=== PATIENT | male | born 1945 | race Caucasian/White ===

== ENCOUNTER 2025-02-17 08:30 | Inpatient (IN) ==
--- NOTE | 2025-02-17 08:40 | ED Physician Documentation ---
PD HPI ABD PAIN Stated complaint Stated Complaint: ABD PX Chief complaint Chief Complaint: Abd Pain History obtained from History obtained from: Patient History of Present Illness Timing - onset: How many days ago (2) Timing - duration: Days (2) Timing - details: Gradual onset, Still present and Waxing and waning Quality: Cramping, Aching, Fullness/distended and Pain Location: All over / everywhere Radiation: Lower back; No Chest Improved by: Eating Worsened by: Moving; No Breathing Associated symptoms: Nausea and Constipation (Has not had a bowel movement for the last 3 days. Typically is regular.); No Fever, Vomiting or Diarrhea Similar symptoms before: Diagnosis (He has had an episode of GI bleeding in the past that led to a partial colectomy and then had a ventral hernia with repair. Subsequently has an umbilical hernia.) Meds/Allgy Home Medications Ambulatory Orders Medication Instructions Recorded Confirmed atenolol 25 mg tablet 25 mg PO BID 11/03/15 02/17/25 multivitamin (Daily Multiple 1 ea PO DAILY 11/03/15 02/17/25 tablet) valsartan 320 1 tab PO DAILY 11/03/15 02/17/25 mg-hydrochlorothiazide 25 mg tablet verapamil 180 mg tablet,extended 360 mg PO DAILY 11/03/15 02/17/25 release Allergies Allergies Allergy/AdvReac Type Severity Reaction Status Date / Time No Known Drug Allergies Allergy Verified 02/17/25 08:42 PFSH Active Problems All Active Problems Abdominal pain (Acute) Cecal volvulus (Acute) Medical History Medical History Hx of gastrointestinal hemorrhage Hernia Partial bowel obstruction History of hypertension Surgical History Surgical History Hx of knee surgery Hx of cataract surgery Hx of hernia repair History of partial colectomy Social History Social History Smoking Status: Never smoker Do you dip or chew tobacco?: No Do you vape?: No Living arrangement: At home Marital Status: Living Condition: With spouse/s.o. Relationship: Level: Independent Do you feel safe in your home environment?: Yes Suffered physical, verbal, emotional, or financial abuse?: No History of Abuse: No ETOH Use: Wine Frequency: Daily Number of Amount/day: 3 Substance Use: denies use Exam Constitutional normal general appearance, distress noted (mild) (The patient does not look too uncomfortable. His abdomen is distended with hyperactive bowel sounds.) and average body habitus Respiratory breath sounds equal bilaterally and normal respiratory effort Cardiovascular normal heart rate noted, regular rhythm noted and no edema Gastrointestinal distended (notably distended), abnormal bowel sounds noted (hyperactive bowel sounds) and no masses Periumbilical hernia without any tenderness and is partly reducible. Genitourinary no CVA tenderness Psychiatry mental status grossly normal, oriented x3 and thought process normal Skin skin color normal Results Vitals Vitals: Vital Signs - 24 hr 02/17/25 08:43 02/17/25 09:12 02/17/25 10:30 Temperature 36.7 C Temperature Source Temporal Artery Scan Pulse Rate 74 61 60 Respiratory Rate 16 16 16 Blood Pressure 138/91 H 103/67 107/63 O2 Saturation 96 93 92 O2 Source Room air Room air Room air Pain Intensity 6 3 0 02/17/25 11:10 02/17/25 12:02 Temperature Temperature Source Pulse Rate 68 70 Respiratory Rate 16 16 Blood Pressure 121/81 107/75 O2 Saturation 96 94 O2 Source Room air Room air Pain Intensity 0 0 Oxygen O2 Source Room air Labs Labs: Laboratory Tests 02/17/25 08:55 WBC 15.1 H RBC 4.52 L Hgb 16.3 Hct 46.0 MCV 101.8 H MCH 36.1 H MCHC 35.4 RDW 11.6 L Plt Count 352 MPV 8.7 Neut # (Auto) 12.4 H Lymph # (Auto) 1.0 L Gray # (Auto) 1.5 H Eos # (Auto) 0.1 Baso # (Auto) 0.0 Absolute Nucleated RBC 0.00 Nucleated RBC % 0.0 Manual Slide Review Indicated RBC Morph Micro Appear 1+ ANISOCYTOSIS Sodium 127 L Potassium 4.2 Chloride 90 L Carbon Dioxide 27 Anion Gap 10.0 BUN 16 Creatinine 0.9 Estimated GFR (MDRD) 82 L Glucose 127 H Calcium 9.4 Magnesium 1.7 Total Bilirubin 1.1 H AST 18 ALT 15 Alkaline Phosphatase 75 Total Protein 7.8 Albumin 4.3 Globulin 3.5 Albumin/Globulin Ratio 1.2 Lipase < 10 L Rads (name of study) A/P CT: Relevant Findings:: Discussed with rads and EMP independent interpretation of test Interpretation: COMPARISON: 10/29/2024 FINDINGS: Image quality: Diagnostic. Lower chest: Senescent changes and extensive coronary calcifications. Liver: Hepatic cysts. Gallbladder: No radiopaque stones or wall thickening. Biliary tree: No intrahepatic or extrahepatic dilation, accounting for age. Spleen: No splenomegaly. Pancreas: No pancreatic ductal dilation. Adrenals: No adrenal nodule. Kidneys and ureters: No hydronephrosis. No renal cystic lesion which requires follow up. No solid mass. Stomach, bowel and peritoneum: Volvulus of the cecum. Normal bowel enhancement a t this time. Mild mesenteric edema. Lymph nodes: No central or retroperitoneal adenopathy. Vessels: No infrarenal aortic aneurysm. Patent portal vein. PELVIS Reproductive organs: Unremarkable. Bladder: No abnormal wall thickening. Pelvic lymph nodes: No pelvic adenopathy by size criteria. Bones: No aggressive osseous abnormality. Degenerative changes of the spine. Other: Widemouth supra umbilical hernia containing fat. Small inguinal hernias containing fat. IMPRESSION: Cecal volvulus. Mild mesenteric edema without abnormal bowel enhancement. Surgical consultation is recommended. Other chronic findings as above. Above discussed with Jaden Rolle MD at the time of dictation. Reviewed by: Sukhwinder Vargas MD on 02/17/2025 11:18 AM PDT PD Medical Decision Making ED course Complexity details: reviewed results (The CT scan is consistent with a cecal volvulus and the radiologist did discuss it with me. I talked with Dr. Fitch who is on-call for surgery and she will come see the patient in the ER.), re- evaluated patient (I updated the patient on the findings and potential for need of surgery. They are comfortable with the surgery here. He was given IV fluids and kept NPO. He did not require much pain medicine. Given antiemetic.), considered differential (Abdominal distention with hyperactive bowel sounds and no stool out seems consistent with a obstructive pattern. He has not had any vomiting but has had nausea and fullness. Will get CT scan and labs with concern for partial SBO.), d/w patient and d/w family Discharge Plan Discharge Patient Disposition: ED Transfer to [facility] Condition: Stable Clinical Impression: Cecal volvulus, Abdominal pain
[2025-02-17 09:07] LABS: BASOPHILS % (AUTO) 0.3 %; EOSINOPHILS # (AUTO) 0.1 10^3/uL (0.0-0.7); EOSINOPHILS % (AUTO) 0.4 %; HGB - HEMOGLOBIN 16.3 g/dL (14.0-18.0); LYMPHOCYTES % (AUTO) 6.7 %; MEAN CORPUSCULAR HEMOGLOBIN 36.1 pg (27.0-31.0); MEAN CORPUSCULAR HGB CONC 35.4 g/dL (32.0-36.0); MEAN CORPUSCULAR VOLUME 101.8 fL (80.0-94.0); MEAN PLATELET VOLUME 8.7 fL (7.4-11.4); MONOCYTES # (AUTO) 1.5 10^3/uL (0.0-1.0); NEUTROPHILS # (AUTO) 12.4 10^3/uL (1.5-6.6); NEUTROPHILS % (AUTO) 82.1 %; PLT - PLATELET COUNT 352 10^3/uL (130-450); RED BLOOD COUNT 4.52 10^6/uL (4.70-6.10); RED CELL DISTRIBUTION WIDTH 11.6 % (12.0-15.0); WHITE BLOOD COUNT 15.1 x10^3/uL (4.8-10.8)
[2025-02-17] MEDS: SODIUM CHLORIDE 0.9% 1,000 ML IV STA (09:07)
[2025-02-17] MEDS: ONDANSETRON 4 MG/2 ML VIAL IVP STA (09:09)
[2025-02-17] MEDS: HYDROmorphone 1 MG/ML SYRINGE IVP STA (09:09)
[2025-02-17 09:19] LABS: ALBUMIN 4.3 g/dL (3.2-5.5); ALBUMIN/GLOBULIN RATIO 1.2 (1.0-2.2); ALKALINE PHOSPHATASE 75 IU/L (42-121); ALT ALANINE AMINOTRANSFERASE 15 IU/L (10-60); AST ASPARTATE AMINOTRANSFERASE 18 IU/L (10-42); BILIRUBIN,TOTAL 1.1 mg/dL (0.2-1.0); BUN - BLOOD UREA NITROGEN 16 mg/dL (6-20); CALCIUM 9.4 mg/dL (8.5-10.3); CARBON DIOXIDE - CO2 27 mmol/L (21-32); CHLORIDE 90 mmol/L (101-111); CREATININE 0.9 mg/dL (0.6-1.3); GFR - MDRD 82 (>89); GLUCOSE 127 mg/dL (74-104); LIPASE < 10 U/L (11-82); MAGNESIUM 1.7 mg/dL (1.7-2.3); POTASSIUM 4.2 mmol/L (3.5-4.5); RBC MORPHOLOGY (MULTIPLE) 1+ ANISOCYTOSIS (NORMAL); SLIDE REVIEW? Indicated; SODIUM 127 mmol/L (135-145); TOTAL PROTEIN 7.8 g/dL (6.4-8.9)
[2025-02-17] MEDS ORDERED: iohexoL-300 100 ML VIAL ONE (10:37)
--- NOTE | 2025-02-17 11:19 | CT Report ---
PROCEDURE: CT Abdomen/Pelvis W INDICATIONS: abd distension and pain CONTRAST: 100ml omni 300 TECHNIQUE: After the administration of intravenous contrast, a CT scan of the abdomen and pelvis was performed. Images were recorded and evaluated at appropriate window settings. Reformats: coronal and sagittal. F or radiation dose reduction, the following was used: automated exposure control, adjustment of mA and /or kV according to patient size. COMPARISON: 10/29/2024 FINDINGS: Image quality: Diagnostic. Lower chest: Senescent changes and extensive coronary calcifications. Liver: Hepatic cysts. Gallbladder: No radiopaque stones or wall thickening. Biliary tree: No intrahepatic or extrahepatic dilation, accounting for age. Spleen: No splenomegaly. Pancreas: No pancreatic ductal dilation. Adrenals: No adrenal nodule. Kidneys and ureters: No hydronephrosis. No renal cystic lesion which requires follow up. No solid mas s. Stomach, bowel and peritoneum: Volvulus of the cecum. Normal bowel enhancement at this time. Mild mes enteric edema. Lymph nodes: No central or retroperitoneal adenopathy. Vessels: No infrarenal aortic aneurysm. Patent portal vein. PELVIS Reproductive organs: Unremarkable. Bladder: No abnormal wall thickening. Pelvic lymph nodes: No pelvic adenopathy by size criteria. Bones: No aggressive osseous abnormality. Degenerative changes of the spine. Other: Widemouth supra umbilical hernia containing fat. Small inguinal hernias containing fat. IMPRESSION: Cecal volvulus. Mild mesenteric edema without abnormal bowel enhancement. Surgical consultation is re commended. Other chronic findings as above. Above discussed with Jaden Rolle MD at the time of dictation. Reviewed by: Sukhwinder Vargas MD on 02/17/2025 11:18 AM PDT Approved by: Sukhwinder Vargas MD on 02/17/2025 11:18 AM PDT Station ID: [id number]
[2025-02-17] MEDS ORDERED: PROPOFOL 200 MG/20 ML VIAL IVP ONE (12:52)
[2025-02-17] MEDS ORDERED: SUCCINYLCHOLINE 200 MG/10 ML VIAL ONE (12:52)
[2025-02-17] MEDS ORDERED: VECURONIUM 10 MG VIAL ONE (12:53)
[2025-02-17] MEDS ORDERED: SODIUM CHLORIDE 0.9% 10 ML VIAL IVP ONE ×2 (12:53→13:48)
[2025-02-17] MEDS ORDERED: fentaNYL 100 MCG/2 ML VIAL ONE (12:53)
--- NOTE | 2025-02-17 12:53 | PREOP HISTORY & PHYSICAL ---
Surgical History & Physical Chief Complaint/HPI Chief Complaint: My belly hurts History of Present Illness: Patient reports onset of abdominal discomfort Sunday morning which has progressively worsened since that time. He describes the pain as sharp and states it "feels like gas pain." He took some ibuprofen for the pain yesterday which helped. He has noted associated increasing abdominal distension which has slowly worsened over the last several days. He has not had a bowel movement for the last couple days and is no longer passing flatus. No recent blood in his stool. Today, he was feeling nauseated which was new and his pain continued to worsen, prompting him to come to the ED with his , Tayler. There, labs and imaging were consistent with cecal volvulus, which is why the patient is being admitted. PMH significant for HTN, h/o partial colon resection in 2015 for lower GI bleed, VHR in 2016. He denies any chest pain, shortness of breath, h/o CAD, CVA, or other major medical problems. All Active Problems (Updated 02/17/25 @ 12:50 by Jaden Rolle MD) Abdominal pain (Acute) Cecal volvulus (Acute) Temp Pulse Resp BP Pulse Ox 98.1 F 70 16 107/75 94 02/17/25 08:43 02/17/25 12:02 02/17/25 12:02 02/17/25 12:02 02/17/25 12:53 Home Meds and Allergies Active Medications Generic Name Dose Route Start Last Admin Trade Name Freq PRN Reason Stop Dose Admin Atenolol 25 mg 02/17/25 21:00 Atenolol 25 Mg Tablet PO BID PEDRITO Hydrochlorothiazide 25 mg 02/18/25 09:00 Hydrochlorothiazide 25 Mg Tablet PO DAILY PEDRITO Metronidazole 500 mg in 100 mls @ 100 mls/hr 02/17/25 13:00 Flagyl 500 Mg/100 Ml IV 02/17/25 13:59 ONCE ONE Losartan Potassium 100 mg 02/18/25 09:00 Losartan 50 Mg Tablet PO DAILY PEDRITO Multivitamins/Minerals 1 tab 02/18/25 09:00 Multivitamin W/Minerals Tablet PO DAILY PEDRITO Verapamil HCl 360 mg 02/18/25 09:00 Verapamil Er 180 Mg Tablet PO DAILY PEDRITO atenolol 25 mg tablet 25 mg PO BID 11/03/15 multivitamin (Daily Multiple tablet) 1 ea PO DAILY 11/03/15 valsartan 320 mg-hydrochlorothiazide 25 mg tablet 1 tab PO DAILY 11/03/15 verapamil 180 mg tablet,extended release 360 mg PO DAILY 11/03/15 Allergies Allergy/AdvReac Type Severity Reaction Status Date / Time No Known Drug Allergies Allergy Verified 02/17/25 08:42 Vital Signs O2 Saturation: 94 Patient Review Patient Review Pertinent Tests Reviewed [facility] Medical History Medical History Hx of gastrointestinal hemorrhage Hernia Partial bowel obstruction History of hypertension Surgical History Surgical History Hx of knee surgery Hx of cataract surgery Hx of hernia repair History of partial colectomy Social History Social History Smoking Status: Never smoker Do you dip or chew tobacco?: No Do you vape?: No Living arrangement: At home Marital Status: Living Condition: With spouse/s.o. Relationship: Level: Independent Do you feel safe in your home environment?: Yes Suffered physical, verbal, emotional, or financial abuse?: No History of Abuse: No ETOH Use: Wine Frequency: Daily Number of Amount/day: 3 Substance Use: denies use POLST Patient has POLST: No Exam Exam GEN: No acute distress, appears younger than stated age, alert and oriented HEENT: NCAT, MMM, EOMI NEURO: CN II-XII grossly intact, no obvious focal deficits CV: RRR PULM: non labored, on RA ABD: markedly distended, tympanic, soft, with mild diffuse tenderness to palpation, no rebound or guarding CIRCULATORY: no clubbing, cyanosis, or edema SKIN: no lesions appreciated LYMPH: no obvious lymphadenopathy MSK: 4/4 strength in all extremities PSYCH: Affect is appropriate Image I personally interpreted the images from and reviewed the report from the patient's CT scan of his abdomen and pelvis today. He has a cecal volvulus with the cecum in the left upper quadrant of his abdomen and associated obstruction. There is no sign of perforation. There is no significant mesenteric edema. There is no free air or significant free fluid. Review of Systems Status of ROS: 10 or more systems reviewed and unremarkable except as noted in history and below Assessment & Plan Assessment & Plan Assessment & Plan: This is a 79-year-old male with: 1. Cecal volvulus with obstruction The patient's history, physical exam, laboratory studies, and imaging are consistent with this diagnosis I explained the natural history of cecal volvulus, as well as the risks, benefits, and alternatives of open right hemicolectomy with the patient and his . Risks include but are not limited to bleeding, infection, damage to surrounding structures, anastomotic leak, and the need for further surgeries or procedures. The patient voiced understanding, his questions were answered, and he wished to proceed with surgery. A consent was signed by the patient in the emergency department. -Perioperative antibiotics have been ordered. ERS protocol not being followed due to the patient's obstruction and nausea. 2. Hypertension Home meds will be restarted after surgery with hold parameters 3. Leukocytosis I suspect this is reactive in nature and will continue to follow 4. Hyponatremia Provide IV fluids and continue to monitor, asymptomatic The patient will be admitted as an inpatient to the floor after surgery. I anticipate he will require hospitalization until he is tolerating a regular diet, and his pain can be controlled with oral medication.
[2025-02-17] MEDS: LACTATED RINGERS 1,000 ML IV SCH ×2 (13:00→16:40)
--- NOTE | 2025-02-17 13:12 | ANESTHESIA PROCEDURE NOTE ---
Pre-Anesthesia VS, & Labs Diagnosis Surgical Diagnosis:: cecal volvulus Procedure Procedure: Open right hemicolectomy Vitals Vital Signs: Temp Pulse Resp BP Pulse Ox 36.7 C 70 16 107/75 94 02/17/25 08:43 02/17/25 12:02 02/17/25 12:02 02/17/25 12:02 02/17/25 12:53 NPO NPO: >8 hours Lab Results Current Lab Results: Laboratory Tests 02/17/25 08:55: WBC 15.1 H, RBC 4.52 L, Hgb 16.3, Hct 46.0, MCV 101.8 H, MCH 36.1 H, MCHC 35.4, RDW 11.6 L, Plt Count 352, MPV 8.7, Neut # (Auto) 12.4 H, L ymph # (Auto) 1.0 L, Steele # (Auto) 1.5 H, Eos # (Auto) 0.1, Baso # (Auto) 0.0, Absolute Nucleated RBC 0.00, Nucleated RBC % 0.0, Manual Slide Review Indicated, RBC Morph Micro Appear 1+ ANISOCYTOSIS, Sodium 127 L, Potassium 4.2, Chloride 90 L, Carbon Dioxide 27, Anion Gap 10.0, BUN 16, Creatinine 0.9, Estimated GFR (MDRD) 82 L, Glucose 127 H, Calcium 9.4, Magnesium 1.7, Total Bilirubin 1.1 H, AST 18, ALT 15, Alkaline Phosphatase 75, Total Protein 7.8, Albumin 4.3, Globulin 3.5, Albumin/Globulin Ratio 1.2, Lipase < 10 L Lab results reviewed: Yes 02/17/25 08:55 02/17/25 08:55 Meds/Allgy Home Medications Ambulatory Orders Medication Instructions Recorded Confirmed atenolol 25 mg tablet 25 mg PO BID 11/03/15 02/17/25 multivitamin (Daily Multiple 1 ea PO DAILY 11/03/15 02/17/25 tablet) valsartan 320 1 tab PO DAILY 11/03/15 02/17/25 mg-hydrochlorothiazide 25 mg tablet verapamil 180 mg tablet,extended 360 mg PO DAILY 11/03/15 02/17/25 release Allergies Allergies Allergy/AdvReac Type Severity Reaction Status Date / Time No Known Drug Allergies Allergy Verified 02/17/25 08:42 PFSH Active Problems All Active Problems Abdominal pain (Acute) Cecal volvulus (Acute) Medical History Medical History Hx of gastrointestinal hemorrhage Hernia Partial bowel obstruction History of hypertension Surgical History Surgical History Hx of knee surgery Hx of cataract surgery Hx of hernia repair History of partial colectomy Social History Social History (Updated 02/17/25 @ 08:49 by Lisandro Diaz RN) Smoking Status: Never smoker Do you dip or chew tobacco?: No Do you vape?: No Living arrangement: At home Marital Status: Living Condition: With spouse/s.o. Relationship: Level: Independent Do you feel safe in your home environment?: Yes Suffered physical, verbal, emotional, or financial abuse?: No History of Abuse: No ETOH Use: Wine Frequency: Daily Number of Amount/day: 3 Substance Use: denies use POLST Patient has POLST: No Anesthesia Exam (Expanded) Exam General: Alert, Oriented x3 and Cooperative Dental: WNL Mouth Openin Fingerbreadth (High arched palate) Neck Mobility: Normal Mallampati classification: II Thyromental Distance: 4-6 cm Plan Plan Anesthesia Type: General (RSI) Consent for Procedure(s) Verified and Reviewed: Yes Code Status: Attempt Resuscitation ASA Classification ASA classification: 2-Mild systemic disease Is this case an emergency?: Yes
[2025-02-17] MEDS ORDERED: LIDOCAINE 1%-EPI 1:100000 20 ML MDV ONE (13:13)
[2025-02-17] MEDS ORDERED: BUPIVACAINE 0.5% PF 10 ML VIAL ONE (13:13)
[2025-02-17] MEDS ORDERED: ceFAZolin 1 GM VIAL ONE (13:26)
[2025-02-17] MEDS: iohexoL-300 100 ML VIAL IVP ONE (13:33)
[2025-02-17] MEDS ORDERED: metroNIDAZOLE 500 MG/100 ML 500 MG/100 ML BAG ONE (13:46)
[2025-02-17] MEDS ORDERED: PHENYLEPHRINE 10 MG/ML VIAL ONE (13:58)
[2025-02-17] MEDS ORDERED: DEXAMETHASONE 4 MG/ML VIAL ONE (14:18)
[2025-02-17] MEDS ORDERED: ONDANSETRON 4 MG/2 ML VIAL ONE (15:09)
[2025-02-17] MEDS ORDERED: SUGAMMADEX 200 MG/2 ML VIAL IVP ONE (15:09)
[2025-02-17] MEDS ORDERED: ACETAMINOPHEN 1,000 MG/100 ML 1,000 MG/100 ML BAG IV ONE (15:51)
[2025-02-17] MEDS ORDERED: ONDANSETRON 4 MG/2 ML VIAL IVP PRN (15:54)
[2025-02-17] MEDS ORDERED: NALOXONE 0.4 MG/ML VIAL IVP PRN (15:54)
[2025-02-17] MEDS ORDERED: HYDROmorphone 0.5 MG/0.5 ML SYRINGE IVP PRN ×2 (15:54→16:27)
[2025-02-17] MEDS ORDERED: MORPHINE 2 MG/ML CARPUJECT IVP PRN (15:54)
[2025-02-17] MEDS ORDERED: ATROPINE ABBOJECT 1 MG/10 ML SYRINGE IVP PRN (15:54)
[2025-02-17] MEDS ORDERED: fentaNYL 100 MCG/2 ML VIAL IVP PRN (15:54)
[2025-02-17] MEDS: ACETAMINOPHEN 1,000 MG/100 ML 1,000 MG/100 ML BAG IV ONE (16:02)
--- NOTE | 2025-02-17 16:02 | OPERATIVE REPORT ---
Operative Report General Admit Date: 02/17/25 Procedure Data: Operation Date: 02/17/25 13:00 Proposed Procedures p OPEN RIGHT HEMICOLECTOMY, POSSIBLE ILEOSTOMY(Not Applicable) - Jaxon Fitch MD Actual Procedures open right hemicolectomy, partial ometectomy, lysis of adhesions, primary repair of ventral hernia Anesthesia Type General Case Staff Anesthesia Provider: Elizabeth Hare Assisting Provider: Jaden Ware Times Into Recovery: 02/17/25 15:46 Procedure Start: 02/17/25 13:51 Procedure End: 02/17/25 15:35 Time out: 02/17/25 13:49 Pre-Op Diagnosis: cecal volvulus Post Op Diagnosis: cecal volvulus, internal hernia, ventral hernia Procedure Note Intake, IV Amount (ml): 1,800 Estimated Blood Loss (ml): 50 Output, Urine Amount (ml): 150 Pathology: 1. right colon Indications: Patient reports onset of abdominal discomfort Sunday which has p rogressively worsened since that time. He describes the pain as sharp and states it "feels like gas pain." He took some ibuprofen for the pain yesterday which helped. He has noted associated increasing abdominal distension which has slowly worsened over the last several days. He has not had a bowel movement for the last couple days and is no longer passing flatus. No recent blood in his stool. Today, he was feeling nauseated which was new and his pain continued to worsen, prompting him to come to the ED with his , Tayler. There, labs and imaging were consistent with cecal volvulus. I saw the patient and evaluated him in the emergency department. We discussed the risks, benefits, and alternatives of open right hemicolectomy. Laparoscopic surgery is not an option for this patient due to the distention of his colon. Risks include but are not limited to bleeding, infection, damage to surrounding structures, anastomotic leak, and the possible need for further surgeries or procedures. The patient also has a recurrent incisional hernia. I will repair this at the time of this procedure, but he is at high risk for recurrence as a mesh repair is not indicated in the setting of concurrent bowel resection. The patient voiced understanding and is looking forward to feeling better. His questions were answered and he signed a consent prior to surgery. Findings: 1. Markedly distended cecum with cecal volvulus through internal hernia in the right lower quadrant 2. Adhesions to the anterior abdominal wall 3. Ventral hernia Complications: none Other Other Information/Narrative: The patient was taken to the operative suite and placed in the supine position. General endotracheal anesthesia was induced and a Pandey catheter was placed. Preoperative antibiotics were given. The patient was then prepped and draped in the usual sterile fashion and a preop surgical timeout was performed. I did call and ask my partner Dr. Jaden Ware to assist with the case given the patient's complex surgical history. Dr. Ware assisted with retraction, positioning, suturing, and suctioning. His presents made the procedure safer and faster. The patient's prior midline incision was opened from just below the umbilicus, cranial approximately 10 cm. The incision was made with a 10 blade scalpel and then carried down through the skin and subcutaneous tissues with blunt and sharp dissection with electrocautery. Because his incision included an incisional hernia, great care was taken not to damage any structures as the incision was opened. The peritoneal cavity was opened and there was no significant fluid encountered. Approximately 30 minutes were required to take down adhesions in all directions surrounding the incision. Adhesions were between the anterior abdominal wall and the omentum and small bowel. Adhesions were carefully taken down with blunt and sharp dissection with Metzenbaum scissors and electrocautery where appropriate. Great care was taken to avoid damaging the bowel and to maintain hemostasis. The cecum was very large, at least 10 cm in diameter, and rotated at least 270 degrees in a clockwise rotation through an internal hernia that was caused by an adhesion of the small bowel to the anterior abdominal wall in the right lower quadrant. The terminal ileum was identified and divided using a DARIEN 75 stapler to allow the volvulus to be detorsed. Next, the volvulus was slowly detorsed in a counterclockwise location and the cecum was then eviscerated. The cecum did not require additional mobilization, a small amount of mobilization of the right lower quadrant along the white line of Toldt was undertaken using blunt and sharp dissection with electrocautery. An area of normal colon approximately two [address] distal on the right colon was identified. And the colon was divided using a DARIEN 75 stapler. The mesentery was divided using a impact LigaSure device. Care was taken to cauterize at least twice in areas where the ileocolic and right colic arteries were identified. The stapled ends of bowel that remained in place were noted to be hemostatic and well-perfused. Once the right colon was freed, it was passed off and labeled as right colon and sent to pathology. At this time, the terminal ileum and distal right colon sat in approximation well. Great care was taken to ensure that the small bowel was not twisted. A [id number] functional end-to-end anastomosis was formed using a DARIEN 75 stapler. The common enterotomy was closed with an additional staple line. The staple lines were oversewn with Lembert sutures at where they crossed. The small bowel was inspected and a 5 mm area of serosal tear was identified on the small bowel in the area where it had been dissected free from the abdominal wall. This was not unexpected given the amount of dissection required. This was oversewn with Lembert sutures. This was not a full-thickness enterotomy. The anastomosis was inspected and noted to be widely patent. The bowel send excellent position. The abdominal cavity was then inspected for hemostasis and irrigated with 3 L of warm normal saline. In the left upper quadrant there was a long string of omentum that had been adherent to the abdominal wall. This was excised as it was felt to be a risk for further adhesions. Again, hemostasis was confirmed. No drain was left in place. Next, the anterior abdominal was closed with 2-0 PDS starting at the inferior and superior aspects of the incision taking great care to reapproximate the fascia in all areas, thereby closing the prior ventral incisional hernia. The s ubcutaneous tissues were irrigated with warm normal saline and the skin edges were reapproximated with skin jeniffer. A sterile dressing was placed. The Pandey catheter was removed at the end of the case. The patient was extubated in the operating room without difficulty and transferred to recovery room in stable but guarded condition. There were no complications. All counts were correct at the end of the case.
--- NOTE | 2025-02-17 16:17 | ANESTHESIA POST OP EVALUATION ---
Anesthesia Post Eval Post Anesthesia Eval Vitals: Last Vital Signs Temp 36.9 C 02/17/25 15:55 Pulse 65 02/17/25 16:05 Resp 14 02/17/25 16:05 BP 102/67 02/17/25 16:05 Pulse Ox 97 02/17/25 16:05 CV Function Including HR & BP: Stable Pain Control: Satisfactory Nausea & Vomiting: Negative Mental Status: Baseline Respiratory Status: Airway Patent Hydration Status: Satisfactory Anesthesia Complications: None
[2025-02-17] MEDS ORDERED: SODIUM CHLORIDE FLUSH 0.9% 10 ML SYRINGE IVP PRN (16:27)
[2025-02-17] MEDS: metroNIDAZOLE 500 MG/100 ML 500 MG/100 ML BAG IV ONE (16:35)
[2025-02-17] MEDS: ceFAZolin (2G) 2 GM in SODIUM CHLORIDE 0.9% MINIBAG 100 ML IV ONE (16:35)
[2025-02-17] MEDS: ACETAMINOPHEN 325 MG TABLET PO SCH (16:40)
[2025-02-17] MEDS: SODIUM CHLORIDE FLUSH 0.9% 10 ML SYRINGE IVP SCH (16:44)
--- NOTE | 2025-02-17 17:19 | PROVIDER PROGRESS NOTE ---
Progress Note Progress Note Progress Note: Post op note: Pain controlled. No n/v. Feeling much better than prior to surgery. Concerned that he had prolonged ileus after prior bowel surgery. We discussed multi-modal pain approach, the importance of increasing his activity as tolerated, and I suggested he try some chewing gum starting tomorrow. Patient does drink alcohol daily but has never had withdrawal symptoms when he does not drink in the past. I will not order CIWA now, but have asked patient and RN to let me know if he is feeling anxious or jittery.
[2025-02-17] MEDS: IBUPROFEN 400 MG TABLET PO SCH (18:28)
[2025-02-17] MEDS ORDERED: atenoloL 25 MG TABLET PO SCH (21:00)
[2025-02-17] MEDS: FAMOTIDINE 20 MG TABLET PO SCH (21:26)
[2025-02-17] MEDS: GABAPENTIN 300 MG CAPSULE PO SCH (21:26)
[2025-02-17] MEDS: atenoloL 25 MG TABLET PO SCH (21:26)
[2025-02-18 05:23] LABS: BASOPHILS % (AUTO) 0.4 %; EOSINOPHILS # (AUTO) 0.1 10^3/uL (0.0-0.7); EOSINOPHILS % (AUTO) 0.8 %; HCT - HEMATOCRIT 37.5 % (42.0-52.0); HGB - HEMOGLOBIN 12.8 g/dL (14.0-18.0); LYMPHOCYTES # (AUTO) 0.4 10^3/uL (1.5-3.5); LYMPHOCYTES % (AUTO) 3.5 %; MEAN CORPUSCULAR HEMOGLOBIN 35.9 pg (27.0-31.0); MEAN CORPUSCULAR HGB CONC 34.1 g/dL (32.0-36.0); MEAN PLATELET VOLUME 8.7 fL (7.4-11.4); MONOCYTES # (AUTO) 0.6 10^3/uL (0.0-1.0); MONOCYTES % (AUTO) 5.5 %; NEUTROPHILS # (AUTO) 9.7 10^3/uL (1.5-6.6); NEUTROPHILS % (AUTO) 89.5 %; PLT - PLATELET COUNT 246 10^3/uL (130-450); RED BLOOD COUNT 3.57 10^6/uL (4.70-6.10); RED CELL DISTRIBUTION WIDTH 11.9 % (12.0-15.0); WHITE BLOOD COUNT 10.9 x10^3/uL (4.8-10.8)
[2025-02-18 05:41] LABS: ALBUMIN/GLOBULIN RATIO 1.3 (1.0-2.2); BILIRUBIN,TOTAL 0.8 mg/dL (0.2-1.0); CALCIUM 7.9 mg/dL (8.5-10.3); CREATININE 0.8 mg/dL (0.6-1.3); POTASSIUM 4.1 mmol/L (3.5-4.5); TOTAL PROTEIN 5.4 g/dL (6.4-8.9)
[2025-02-18] MEDS: VERAPAMIL ER 180 MG TABLET PO SCH (08:35)
[2025-02-18] MEDS: MULTIVITAMIN W/MINERALS TABLET PO SCH (08:36)
[2025-02-18] MEDS: hydroCHLOROthiazide 25 MG TABLET PO SCH (08:37)
[2025-02-18] MEDS: LOSARTAN 50 MG TABLET PO SCH (08:37)
[2025-02-18] MEDS: ENOXAPARIN 40 MG/0.4 ML SYRINGE SUBQ SCH (08:38)
--- NOTE | 2025-02-18 08:39 | PROVIDER PROGRESS NOTE ---
Subjective General Admit Date: 02/17/25 Procedure Date: 02/17/25 Post Op Days: 1 Procedure Performed: open right hemicoloectomy, MEDARDO, primary repair of ventral hernia Other Other Information/Narrative: Patient feeling good this AM. Denies nausea. +ambulation to restroom. Pain controlled. +flatus. No BM. +void. No acute events overnight. Review of Systems Status of ROS: 10 or more systems reviewed and unremarkable except as noted in history and below Exam Exam GEN: No acute distress, appears younger than stated age, alert and oriented CV: RRR PULM: non labored, on RA ABD: minimal distension (much improved after surgery), soft, with minimal tenderness to palpation, no rebound or guarding CIRCULATORY: no clubbing, cyanosis, or edema Impression/Plan Problem List (1) Cecal volvulus: Plan This is a 79-year-old male with: 1. Cecal volvulus with obstruction, s/p open R hemicolectomy, MEDARDO, primary ventral hernia repair on 02/17, POD#1 incision doing well - pain controlled with PO meds - +flatus, will adat to clears, consider advancing further this PM if doing well. Will SLIV if tolerating clears this PM. - increase activity today - encouraged IS 2. Hypertension Home meds ordered with hold parameters 3. Leukocytosis improving, continue to follow 4. Hyponatremia asymptomatic, stable, cont to monitor 5. alcohol use - no h/o withdrawal. No CIWA ordered. No sx of withdrawal 6. decreased hemoglobin - as expected after surgery and fluid resusciatation - repeat lab at 1200 - hold lovenox until repeat stable Ppx: famotidine, SCDs, currently holding lovenox The patient will be admitted as an inpatient to the floor after surgery. I anticipate he will require hospitalization until he is tolerating a regular diet, and his pain can be controlled with oral medication (another 1-2 days).
[2025-02-18] MEDS ORDERED: LOSARTAN 50 MG TABLET PO SCH (09:00)
[2025-02-18] MEDS ORDERED: hydroCHLOROthiazide 25 MG TABLET PO SCH (09:00)
[2025-02-18] MEDS ORDERED: VERAPAMIL ER 180 MG TABLET PO SCH (09:00)
[2025-02-18] MEDS ORDERED: MULTIVITAMIN W/MINERALS TABLET PO SCH (09:00)
--- NOTE | 2025-02-18 11:29 | PT Plan of Care ---
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 MEDICAL/SURGICAL HISTORY Medical History Hx of gastrointestinal hemorrhage Hernia Partial bowel obstruction History of hypertension Surgical History Hx of knee surgery Hx of cataract surgery Hx of hernia repair History of partial colectomy BALANCE/FUNCTIONAL RESULTS Sitting Balance: Good Standing Balance: Good Tinetti Composite Score (Balance + Gait): 28 Tinetti Assessment Interpretation: Low Fall Risk ASSESSMENT Assessment: The pt is a 79 y/o M who arrived to the ED on 02/17/25 due to increasing abdominal pain, he was hospitalized with a cecal volvulus and is now POD1 s/p repair of this and a hernia. Please see chart for complete medical hx. The pt was received resting comfortably supine in bed and presented today with good B UE and LE strength and decreased activity tolerance. He was able to demo correct log roll form when transferring supine to sit and agreed to perform this at home to limit abdominal strain. At this time the pt does not appear to requir e continued skilled PT intervention while in the acute setting and it is recommended that he DC home without further therapy or DME needs once medically stable. This plan was discussed with the pt and his , they were in agreement with this. At the end of the session the pt was sitting up in a chair with call light in reach and all needs met. RN. ARCADIO, and hospitalist updated on pt's status and DC rec, no goals will be set as this is an eval only. PLAN Frequency: Evaluation only, no further P.T. DISCHARGE RECOMMENDATIONS Discharge Location: Previous Living Situation Support/Services Needed: No needs Other Discharge Equipment: no needs Transport Needs at Discharge: Personal vehicle
--- NOTE | 2025-02-18 13:22 | PHARMACY PROGRESS NOTE ---
Best Possible Medication History Admit Date and Time: 02/17/25 1245 Home Medications Medication Instructions Recorded Confirmed Type verapamil 180 mg tablet,extended 360 mg PO DAILY 11/03/15 02/17/25 History release atenolol 50 mg tablet 50 mg PO BID 02/18/25 02/18/25 History hydrochlorothiazide 25 mg tablet 25 mg PO DAILY 02/18/25 02/18/25 History multivitamin (Daily Multi-Vitamin 1 tab PO DAILY 02/18/25 02/18/25 History tablet) valsartan 320 mg tablet 320 mg PO DAILY 02/18/25 02/18/25 History Processed by: Pharmacy (Medication Reconciliation completed by emissions testing technicianSarahi) Medications reviewed in ED?: No Medication History completed: Yes Patient Interview: Completed Secondary Source(s): Insurance records [facility] Statement: As the person ultimately responsible for medication therapy, providers are able to order a medication from an existing home medication list in [facility] via the "Reconcile Routine" prior to Confirmation of that medication by coding support specialist. Such practice is discouraged except when the physician, in their clinical judgment, deems that a medical need exists for a medication without regard to previous use.
[2025-02-18] MEDS: ACETAMINOPHEN 325 MG TABLET PO SCH (16:37)
[2025-02-19 05:49] LABS: BASOPHILS % (AUTO) 0.8 %; EOSINOPHILS % (AUTO) 11.4 %; HCT - HEMATOCRIT 34.4 % (42.0-52.0); HGB - HEMOGLOBIN 12.1 g/dL (14.0-18.0); LYMPHOCYTES % (AUTO) 9.9 %; MEAN CORPUSCULAR HGB CONC 35.2 g/dL (32.0-36.0); MEAN CORPUSCULAR VOLUME 102.4 fL (80.0-94.0); MEAN PLATELET VOLUME 9.1 fL (7.4-11.4); MONOCYTES % (AUTO) 11.8 %; NEUTROPHILS % (AUTO) 66.1 %; PLT - PLATELET COUNT 236 10^3/uL (130-450); RED BLOOD COUNT 3.36 10^6/uL (4.70-6.10); RED CELL DISTRIBUTION WIDTH 11.8 % (12.0-15.0); WHITE BLOOD COUNT 2.6 x10^3/uL (4.8-10.8)
[2025-02-19 06:05] LABS: CALCIUM 8.3 mg/dL (8.5-10.3); CREATININE 0.7 mg/dL (0.6-1.3); POTASSIUM 3.8 mmol/L (3.5-4.5)
[2025-02-19 06:06] LABS: ABNORMAL LYMPHS % (MANUAL) 0 %
[2025-02-19 06:45] LABS: BAND NEUTROPHILS % (MANUAL) 22 %; BASOPHILS % (MANUAL) 1 %; DIFFERENTIAL COMMENT MANUAL DIFFERENTIAL; EOSINOPHILS # (MANUAL) 0.4 10^3/uL (0-0.7); LYMPHOCYTES # (MANUAL) 0.3 10^3/uL (1.5-3.5); LYMPHOCYTES % (MANUAL) 11 %; MONOCYTES # (MANUAL) 0.1 10^3/uL (0.0-1.0); NEUTROPHILS # (MANUAL) 1.7 10^3/uL (1.5-6.6); PLATELET ESTIMATE, MANUAL NORMAL (130-450,000) (NORMAL); PLATELET MORPHOLOGY NORMAL APPEARANCE (NORMAL); RBC MORPHOLOGY (MULTIPLE) NORMAL APPEARANCE (NORMAL); WBC MORPHOLOGY (MULTIPLE) NORMAL APPEARANCE (NORMAL)
[2025-02-19] MEDS: ENOXAPARIN 40 MG/0.4 ML SYRINGE SUBQ SCH (08:19)
--- NOTE | 2025-02-19 08:38 | PROVIDER PROGRESS NOTE ---
Subjective General Admit Date: 02/17/25 Procedure Date: 02/17/25 Post Op Days: 2 Procedure Performed: open right hemicoloectomy, MEDARDO, primary repair of ventral hernia Other Other Information/Narrative: Pain controlled with PO tylenol and ibuprofen and gabapentin. He is not requiring any narcotics. Tolerated regular diet for breakfast. Denies any nausea, vomiting, bloating. He has had at least two BM's, both loose. +void. +ambulation. He denies fevers or chills. He would like to go home. Review of Systems Status of ROS: 10 or more systems reviewed and unremarkable except as noted in history and below Exam Exam GEN: No acute distress, appears younger than stated age, alert and oriented CV: RRR PULM: non labored, on RA ABD: slight distension (though somewhat difficult to assess when patient sitting in bed), soft, with minimal tenderness to palpation in RLQ otherwise NTTP, no rebound or guarding CIRCULATORY: no clubbing, cyanosis, or edema Impression/Plan Problem List (1) Cecal volvulus: Plan This is a 79-year-old male with: 1. Cecal volvulus with obstruction, s/p open R hemicolectomy, MEDARDO, primary ventral hernia repair on 02/17, POD#2 incision doing well - pain controlled with PO meds, not using any narcotic pain meds - +flatus, and BM's (loose). On regular diet as of this AM. SLIV. - continue to increase activity today - encouraged IS 2. Hypertension - chronic, controlled Home meds ordered with hold parameters 3. Leukocytosis/leukopenia wbc low today. No other clinical signs or symptoms of infection. Will continue to monitor and repeat lab tomorrow 4. Hyponatremia - improving asymptomatic, stable, cont to monitor 5. alcohol use - no h/o withdrawal. No CIWA ordered. No sx of withdrawal 6. decreased hemoglobin - stable - multifactorial, with contributions from surgery and dilution Ppx: famotidine, SCDs, lovenox The patient is admitted as an inpatient to the floor. I anticipate he will require hospitalization until he is tolerating a regular diet, and his pain can be controlled with oral medication (another 1-2 days).
[2025-02-19] MEDS ORDERED: CALCIUM CARBONATE CHEW 500 MG TABLET PO PRN (08:56)
[2025-02-19] MEDS ORDERED: oxyCODONE 5 MG TABLET PO PRN (08:57)
[2025-02-19 16:31] LABS: BASOPHILS % (AUTO) 0.4 %; EOSINOPHILS % (AUTO) 4.3 %; HCT - HEMATOCRIT 39.6 % (42.0-52.0); HGB - HEMOGLOBIN 13.9 g/dL (14.0-18.0); LYMPHOCYTES % (AUTO) 8.2 %; MEAN CORPUSCULAR HEMOGLOBIN 36.5 pg (27.0-31.0); MEAN CORPUSCULAR HGB CONC 35.1 g/dL (32.0-36.0); MEAN CORPUSCULAR VOLUME 103.9 fL (80.0-94.0); MEAN PLATELET VOLUME 8.7 fL (7.4-11.4); MONOCYTES % (AUTO) 9.6 %; NEUTROPHILS % (AUTO) 77.1 %; PLT - PLATELET COUNT 318 10^3/uL (130-450); RED BLOOD COUNT 3.81 10^6/uL (4.70-6.10); RED CELL DISTRIBUTION WIDTH 11.7 % (12.0-15.0); WHITE BLOOD COUNT 2.8 x10^3/uL (4.8-10.8)
[2025-02-19 16:43] LABS: CALCIUM 9.2 mg/dL (8.5-10.3); CREATININE 0.8 mg/dL (0.6-1.3); POTASSIUM 3.6 mmol/L (3.5-4.5)
[2025-02-19 17:32] LABS: ABNORMAL LYMPHS % (MANUAL) 5 %; BAND NEUTROPHILS % (MANUAL) 14 %; EOSINOPHILS # (MANUAL) 0.1 10^3/uL (0-0.7); LYMPHOCYTES # (MANUAL) 0.5 10^3/uL (1.5-3.5); LYMPHOCYTES % (MANUAL) 14 %; MONOCYTES # (MANUAL) 0.2 10^3/uL (0.0-1.0)
[2025-02-19 17:35] LABS: RBC MORPHOLOGY (MULTIPLE) NORMAL APPEARANCE (NORMAL)
[2025-02-19 17:36] LABS: PLATELET ESTIMATE, MANUAL NORMAL (130-450,000) (NORMAL)
[2025-02-19 17:37] LABS: DIFFERENTIAL COMMENT MANUAL DIFFERENTIAL
[2025-02-20 05:57] LABS: BASOPHILS % (AUTO) 0.5 %; EOSINOPHILS % (AUTO) 0.2 %; HCT - HEMATOCRIT 35.7 % (42.0-52.0); HGB - HEMOGLOBIN 12.8 g/dL (14.0-18.0); LYMPHOCYTES % (AUTO) 6.2 %; MEAN CORPUSCULAR HEMOGLOBIN 36.4 pg (27.0-31.0); MEAN CORPUSCULAR HGB CONC 35.9 g/dL (32.0-36.0); MEAN CORPUSCULAR VOLUME 101.4 fL (80.0-94.0); MEAN PLATELET VOLUME 9.2 fL (7.4-11.4); MONOCYTES % (AUTO) 10.3 %; NEUTROPHILS % (AUTO) 82.5 %; PLT - PLATELET COUNT 331 10^3/uL (130-450); RED BLOOD COUNT 3.52 10^6/uL (4.70-6.10); RED CELL DISTRIBUTION WIDTH 11.8 % (12.0-15.0); WHITE BLOOD COUNT 6.1 x10^3/uL (4.8-10.8)
[2025-02-20 06:06] LABS: ABNORMAL LYMPHS % (MANUAL) 0 %
[2025-02-20 07:00] LABS: BAND NEUTROPHILS % (MANUAL) 14 %; EOSINOPHILS # (MANUAL) 0.1 10^3/uL (0-0.7); LYMPHOCYTES # (MANUAL) 0.3 10^3/uL (1.5-3.5); LYMPHOCYTES % (MANUAL) 5 %; MONOCYTES # (MANUAL) 0.2 10^3/uL (0.0-1.0); NEUTROPHILS # (MANUAL) 5.5 10^3/uL (1.5-6.6); PLATELET ESTIMATE, MANUAL NORMAL (130-450,000) (NORMAL); PLATELET MORPHOLOGY NORMAL APPEARANCE (NORMAL); RBC MORPHOLOGY (MULTIPLE) NORMAL APPEARANCE (NORMAL)
[2025-02-20 07:01] LABS: DIFFERENTIAL COMMENT MANUAL DIFFERENTIAL; WBC MORPHOLOGY (MULTIPLE) NORMAL APPEARANCE (NORMAL)
[2025-02-20] MEDS: SODIUM CHLORIDE 0.9% 1,000 ML IV SCH (08:08)
--- NOTE | 2025-02-20 11:26 | XRAY Report ---
PROCEDURE: XR Abdomen 1 V INDICATIONS: nausea, vomiting TECHNIQUE: 1 view of the abdomen were acquired. COMPARISON: None. FINDINGS: Stomach, small and large bowel: There are multiple loops of moderately dilated small bowel in the rig ht midabdomen. The distal small bowel and colon are decompressed. No evidence of obstruction or ileus . There is no free intraperitoneal or extraperitoneal air. Calcification: No pathologic calcification. Soft tissue mass: None. Organs: No gross evidence of organomegaly. IMPRESSION: distal small bowel obstruction Reviewed by: Jaden Brown MD on 02/20/2025 11:25 AM PDT Approved by: Jaden Brown MD on 02/20/2025 11:25 AM PDT Station ID: [id number]
[2025-02-20] MEDS ORDERED: PROCHLORPERAZINE 10 MG/2 ML VIAL IVP PRN (13:41)
[2025-02-20] MEDS: ONDANSETRON 4 MG/2 ML VIAL IVP PRN (14:20)
--- NOTE | 2025-02-20 15:18 | PROVIDER PROGRESS NOTE ---
Subjective General Admit Date: 02/17/25 Procedure Date: 02/17/25 Post Op Days: 3 Procedure Performed: open right hemicoloectomy, MEDARDO, primary repair of ventral hernia Other Other Information/Narrative: Patient had emesis x 3. He is disappointed that he cannot go home yet. Wound Assessment Drain Type: None Review of Systems Status of ROS: 10 or more systems reviewed and unremarkable except as noted in history and below Exam Exam General: 79-year old male, appears stated age, well developed, well nourished evaluated in room 2207 at [facility]'s MedSurg unit, patient was sitting in a chair, in attendance. HEENT: Normocephalic, atraumatic, extraocular movement intact, mucous membranes pink and moist, sclera anicteric and not injected Neck: Supple without pain on palpation, mass or bruit Cardiac: Regular rate and rhythm without rub, gallop, or murmur Chest: Clear to auscultation bilaterally Abdomen: Soft, distended with incisional tenderness, decreased bowel sounds, no hepatomegaly, no splenomegaly, well-approximated mid abdominal incision, jeniffer in place, no erythema, no ecchymosis, no exudate Genitourinary: Deferred Rectal: Deferred Extremities: No gross neurovascular problem, no clubbing, cyanosis or edema Gait: No gross motor deficit Psychiatric: Alert and oriented to person place and time, asks and answers questions appropriately, mood and affect appropriate ABX Reporting Has patient been on IV antibiotics over the past 48 hours?: No Impression/Plan Problem List (1) Cecal volvulus: Problem List Comment Problem List: POD 3 s/p right hemicolectomy with ileocolostomy and ventral herniorrhaphy 1) FEN patient restarted on IV fluids as he is unable to tolerate p.o. quite yet. NPO. I expect that in the next 24 to 48 hours this will resolve. 2) ID no evidence of ongoing or active infection 3) Wound well-approximated no evidence of hernia or infection 4) Activity patient should ambulate more and should shower today. 5) Pathology pending
[2025-02-20] MEDS: ACETAMINOPHEN 325 MG TABLET PO SCH (19:15)
[2025-02-21 06:35] LABS: BASOPHILS % (AUTO) 0.2 %; EOSINOPHILS # (AUTO) 0.2 10^3/uL (0.0-0.7); EOSINOPHILS % (AUTO) 3.2 %; HCT - HEMATOCRIT 33.5 % (42.0-52.0); HGB - HEMOGLOBIN 11.6 g/dL (14.0-18.0); LYMPHOCYTES # (AUTO) 0.7 10^3/uL (1.5-3.5); LYMPHOCYTES % (AUTO) 11.3 %; MEAN CORPUSCULAR HEMOGLOBIN 36.6 pg (27.0-31.0); MEAN CORPUSCULAR HGB CONC 34.6 g/dL (32.0-36.0); MEAN CORPUSCULAR VOLUME 105.7 fL (80.0-94.0); MEAN PLATELET VOLUME 8.7 fL (7.4-11.4); MONOCYTES % (AUTO) 15.4 %; NEUTROPHILS # (AUTO) 4.5 10^3/uL (1.5-6.6); NEUTROPHILS % (AUTO) 69.4 %; PLT - PLATELET COUNT 289 10^3/uL (130-450); RED BLOOD COUNT 3.17 10^6/uL (4.70-6.10); RED CELL DISTRIBUTION WIDTH 11.9 % (12.0-15.0); WHITE BLOOD COUNT 6.5 x10^3/uL (4.8-10.8)
--- NOTE | 2025-02-21 14:13 | PROVIDER PROGRESS NOTE ---
Subjective General Admit Date: 02/17/25 Procedure Date: 02/17/25 Post Op Days: 4 Procedure Performed: open right hemicoloectomy, MEDARDO, primary repair of ventral hernia Other Other Information/Narrative: Patient passed gas and had a small bowel movement yesterday- nothing today. Nervous about eating. at bedside. Already ambulated twice today. Wound Assessment Wound/Incisions: positive Dressing dry and intact Drain Type: None Review of Systems Status of ROS: 10 or more systems reviewed and unremarkable except as noted in history and below Exam Exam General: 79-year old male, appears stated age, well developed, well nourished evaluated in room 2207 at Located within [facility]'s MedSurg unit, patient was sitting in a chair, in attendance. HEENT: Normocephalic, atraumatic, extraocular movement intact, mucous membranes pink and moist, sclera anicteric and not injected Neck: Supple without pain on palpation, mass or bruit Cardiac: Regular rate and rhythm without rub, gallop, or murmur Chest: Clear to auscultation bilaterally Abdomen: Soft, markedly decreased distention with incisional tenderness, slightly better bowel sounds, no hepatomegaly, no splenomegaly, well-ap proximated mid abdominal incision, jeniffer in place, no erythema, no ecchymosis, no exudate Genitourinary: Deferred Rectal: Deferred Extremities: No gross neurovascular problem, no clubbing, cyanosis or edema Gait: No gross motor deficit Psychiatric: Alert and oriented to person place and time, asks and answers questions appropriately, mood and affect appropriate ABX Reporting Has patient been on IV antibiotics over the past 48 hours?: No Impression/Plan Problem List (1) Cecal volvulus: Problem List Comment Problem List: POD 4 s/p right hemicolectomy with ileocolostomy and ventral herniorrhaphy 1) FEN patient restarted on IV fluids as he is unable to tolerate p.o. quite yet. Clear liquid diet. His bowel function s returning but patient is extremely anxious. I told him to prioritize his walking and not worry about po itake - it will come around. has made chicken noodle soup at home. 2) ID no evidence of ongoing or active infection 3) Wound well-approximated no evidence of hernia or infection 4) Activity patient should ambulate more and can shower today. 5) Pathology pending CPT 53773
[2025-02-22 05:33] LABS: BASOPHILS % (AUTO) 0.4 %; EOSINOPHILS # (AUTO) 0.4 10^3/uL (0.0-0.7); EOSINOPHILS % (AUTO) 4.3 %; HCT - HEMATOCRIT 35.4 % (42.0-52.0); LYMPHOCYTES # (AUTO) 1.2 10^3/uL (1.5-3.5); LYMPHOCYTES % (AUTO) 14.4 %; MEAN CORPUSCULAR HEMOGLOBIN 35.8 pg (27.0-31.0); MEAN CORPUSCULAR HGB CONC 33.9 g/dL (32.0-36.0); MEAN CORPUSCULAR VOLUME 105.7 fL (80.0-94.0); MEAN PLATELET VOLUME 8.8 fL (7.4-11.4); MONOCYTES # (AUTO) 1.4 10^3/uL (0.0-1.0); MONOCYTES % (AUTO) 17.4 %; NEUTROPHILS # (AUTO) 5.1 10^3/uL (1.5-6.6); NEUTROPHILS % (AUTO) 62.6 %; PLT - PLATELET COUNT 322 10^3/uL (130-450); RED BLOOD COUNT 3.35 10^6/uL (4.70-6.10); WHITE BLOOD COUNT 8.1 x10^3/uL (4.8-10.8)
[2025-02-22 08:06] VITALS: BP 142/77; TEMP 97.9; O2SAT 97
--- NOTE | 2025-02-22 10:43 | PROVIDER PROGRESS NOTE ---
Subjective General Admit Date: 02/17/25 Procedure Date: 02/17/25 Post Op Days: 5 Procedure Performed: open right hemicoloectomy, MEDARDO, primary repair of ventral hernia Other Other Information/Narrative: Numerous bowel movements as well as passage of gas. Bowel function is returning. Wound Assessment Wound/Incisions: positive Healing well and Dressing dry and intact Drain Type: None Review of Systems Status of ROS: 10 or more systems reviewed and unremarkable except as noted in history and below Exam Exam General: 79-year old male, appears stated age, well developed, well nourished evaluated in room 2207 at [facility]'s MedSurg unit, patient was sitting in a chair, in attendance. HEENT: Normocephalic, atraumatic, extraocular movement intact, mucous membranes pink and moist, sclera anicteric and not injected Neck: Supple without pain on palpation, mass or bruit Cardiac: Regular rate and rhythm without rub, gallop, or murmur Chest: Clear to auscultation bilaterally Abdomen: Soft, markedly decreased distention with incisional tenderness, better bowel sounds, no hepatomegaly, no splenomegaly, well-approximated mid abdominal incision, jeniffer in place, no erythema, no ecchymosis, no exudate Genitourinary: Deferred Rectal: Deferred Extremities: No gross neurovascular problem, no clubbing, cyanosis or edema Gait: No gross motor deficit Psychiatric: Alert and oriented to person place and time, asks and answers questions appropriately, mood and affect appropriate Impression/Plan Problem List (1) Cecal volvulus: Plan: Resolved. Plan Will feed a general diet for lunch and if he tolerates this the patient can be discharged home. This was discussed with the patient and his . He has to follow-up with Dr. Fitch as an outpatient.
--- NOTE | 2025-02-22 14:01 | Discharge Summary ---
"Discharge Summary Admit Date: 02/17/25 Discharge Date: 02/22/25 Discharging Provider: Jaden Ware Primary Care Provider: Sukhwinder Giron Code Status: Attempt Resuscitation DIAGNOSES Admission Diagnoses: Cecal volvulus Discharge Diagnoses with Status of Each Condition: Resolved HPI History of Present Illness: This is a very pleasant 79-year-old male was admitted to the hospital and operated on the same day, February 17, 2025 for cecal volvulus complicated by an internal hernia. The surgeon of note was Dr. Vilma Fitch and the operation was a open right hemicolectomy, partial omentectomy, adhesiolysis, and primary repair of ventral hernia. I was the assisting surgeon during this case. The important information is previous surgery causing the adhesions. CONSULTS | PROCEDURES Consultations: Dr. Vilma Fitch was consulted and then became the admitting physician Procedures: Open right hemicolectomy, partial omentectomy, adhesiolysis, and primary repair of ventral hernia on February 17, 2025 with the primary surgeon of Dr. Vilma Fitch HOSPITAL COURSE Hospital Course: Uncomplicated. We awaited for bowel function to return prior to starting him on a general diet which he tolerated. Pain is well-controlled and the patient is being discharged on the fifth postoperative day to home with a follow-up appointment with Dr. Fitch. ALLERGIES Allergies Allergy/AdvReac Type Severity Reaction Status Date / Time No Known Drug Allergies Allergy Verified 02/17/25 08:42 MEDICATIONS Ambulatory Orders Medication Instructions Recorded Confirmed verapamil 180 mg tablet,extended 360 mg PO DAILY 11/03/15 02/17/25 release atenolol 50 mg tablet 50 mg PO BID 02/18/25 02/18/25 hydrochlorothiazide 25 mg tablet 25 mg PO DAILY 02/18/25 02/18/25 multivitamin (Daily Multi-Vitamin 1 tab PO DAILY 02/18/25 02/18/25 tablet) valsartan 320 mg tablet 320 mg PO DAILY 02/18/25 02/18/25 PHYSICAL EXAM AT DISCHARGE General Appearance: positive No acute distress, Alert and Mild distress Eyes Bilateral: positive Normal inspection, EOMI, No lid inflammation, Conjunctivae nml and No scleral icterus Neck: positive Nml inspection and Trachea midline Respiratory: positive Chest non-tender, No respiratory distress and Breath sounds nml Cardiovascular: positive Regular rate & rhythm, No murmur and No gallop Abdomen: positive Non-tender (Slight incisional but very little.), Nml bowel sounds and No distention Skin: positive Color nml, No rash, Warm and Dry Extremities: positive Non-tender and Nml appearance Neurologic/Psychiatric: positive Oriented x3, Motor nml, Sensation nml and Mood/affect nml LABS 02/22/25 05:07 02/19/25 16:26 FOLLOW UP Follow Up: Dr. Fitch in 7 to 10 days. TIME SPENT Time Spent in Discharge (Minutes): 45 Discharge Plan Discharge Patient Disposition: LONG TERM, Self Care Condition: Stable Prescriptions: Continued verapamil 180 MG tablet extended release 360 mg PO DAILY valsartan 320 mg tablet 320 mg PO DAILY Patient Comments: TAKE 1 TABLET ONCE DAILY hydrochlorothiazide 25 mg tablet 25 mg PO DAILY Patient Comments: TAKE 1 TABLET ONCE DAILY atenolol 50 mg tablet 50 mg PO BID Patient Comments: TAKE 1 TABLET TWICE A DAY multivitamin [Daily Multi-Vitamin] Tablet 1 tab PO DAILY Activity Restrictions: Additional Comments Activity Restrictions/Additional Instructions: DIET - You may resume your normal diet if there is no nausea or vomiting. You may want to avoid spicy, greasy, or heavy foods today to minimize gas. - If nausea or vomiting occurs, don't eat or drink anything for one hour. Then start drinking small amounts of clear liquids. Later, add crackers, gradually building up to your usual diet. ACTIVITY INSTRUCTIONS * Ambulate daily * May climb stairs * No lifting more than 20 lbs for 6 weeks. DRESSING CARE * Ok to cover jeniffer if rubbing on clothes/binder, otherwise leave open to air. * May shower and wash incisions with soap and water ADDITIONAL DISCHARGE INSTRUCTIONS Apply ice to the incisions as often as tolerated for at least 72 hours, 15 min on, 20 min off. This will help with pain and bruising and swelling. MEDICATIONS * Take ibuprofen and Tylenol as needed for pain, AND use oxycodone as needed for pain not controlled with ibuprofen and Tylenol; may take both meds together. * Use stool softener daily while taking narcotic pain meds. ANESTHESIA PRECAUTIONS Anesthesia and medications given during surgery remain in your body up to 24 hours. This may slow reaction time and/or decrease coordination. FOR THE NEXT 24 HOURS: - Have a responsible person with you - Avoid any activity that requires you to be alert and coordinated - DO NOT DRIVE a motor vehicle for 24 hours or as long as you are taking opioid pain medication - Do not drink alcoholic beverages - Do not smoke unattended Patient Date Escort Date RN Date Diet: Regular Plan of Treatment: Please copy Dr. Sukhwinder Giron (Family practice, [facility]) Print Language: [place] Patient Instructions: Surgery Anesthesia After Follow-up Care: Jaxon Fitch MD [Provider Admit Priv/Credential] - (follow up appointment on 03/04/25 at 1100.)"
== END 2025-02-22 15:30 | disposition home or self-care (01) | DRG 330 ==
LOC: ED 08:30 → MS2 12:45
PROVIDERS: ADMIT Surgery; ATTEND Surgery